=== PATIENT | female | born 2000 | race Caucasian/White ===

== ENCOUNTER 2020-09-30 20:43 | Emergency (ER) | payer MEDICAID ==
[~2020-09-30] VITALS: Ht 157.5 cm; Wt 62.1 kg
[2020-09-30 20:54] VITALS: BP 102/69
--- NOTE | 2020-09-30 21:55 | NUR ---
PT. IS A 20 Y/O FEMALE THAT CAME INTO ED WITH C/O OF RIGHT SIDE ABDOMINAL PAIN. PT. STATES THAT SHE HAD LIPO 5 MONTHS AGO AND SINCE THEN SHE STATES, "I'VE HAD WEAKNESS, NAUSEA, AND VOMIT AND CONSTIPATION." PT. STATES THAT THE ABDOMINAL PAIN STARTED TODAY AND "FEELS LIKE PRESSURE." PT. RATES PAIN 7/10 ON THE PAIN SCALE AT THIS TIME. AAOX4. DENIES FEVER. PMH: DENIES ALLERGIES: NKA
--- NOTE | 2020-09-30 21:55 | NUR ---
AMBULATED TO BED 9 WITH EVEN AND STEADY GAIT
--- NOTE | 2020-09-30 21:55 | NUR ---
USED CRYPTOLOGIC TECHNICIAN OPERATOR/ANALYST DEVICE FOR COMPLETE ASSESSMENT. NAME OF CRYPTOLOGIC TECHNICIAN OPERATOR/ANALYST: SAID #:[id number]
--- NOTE | 2020-09-30 22:00 | NUR ---
Note undone in EDM - 09/30/20 at 2308 by [facility] C/C RUQ PAIN X 3 HOURS. DENIES INJURY. DENIES SOB OR CP. DENIES OTC MEDICATION AT HOME. LAST BM 09/29/20, PT REPORTS STRAINING WITH BOWEL MOVEMENT. +N/V X 2 EPISODES. UNK LMP D/T "IRREGULAR PERIODS." MED HX: DENIES ALLERGIES: NKA
[2020-09-30] MEDS ORDERED: KETOROLAC 30 MG/ML VIAL IVP ONE (22:05)
[2020-09-30] MEDS ORDERED: ONDANSETRON 4 MG/2 ML VIAL IVP ONE (22:05)
--- NOTE | 2020-09-30 22:09 | NUR ---
LAB AT BEDSIDE
[2020-09-30 22:20] LABS: BASOPHILS # (AUTO) 0.1 K/uL (0.00-0.22); BASOPHILS % (AUTO) 0.8 % (0.0-2.0); EOSINOPHILS # (AUTO) 0.5 K/uL (0-0.4); EOSINOPHILS % (AUTO) 5.4 % (0.0-4.0); HEMATOCRIT 39.2 % (36-48); HEMOGLOBIN 12.8 g/dL (12.0-16.0); LYMPHOCYTES # (AUTO) 2.4 K/uL (2.5-16.5); LYMPHOCYTES % (AUTO) 28.3 % (20.5-51.1); MEAN CORPUSCULAR HEMOGLOBIN 27 pg (27-31); MEAN CORPUSCULAR HGB CONC 33 g/dL (33-37); MONOCYTES # (AUTO) 0.6 K/uL (0.8-1.0); NEUTROPHILS % (AUTO) 58.5 % (42.2-75.2); PLATELET COUNT (AUTO) 217 K/uL (140-450); RED BLOOD CELL COUNT(AUTO) 4.72 MIL/uL (4.20-5.40); RED CELL DISTRIBUTION WIDTH 13.3 % (11.6-13.7); WHITE BLOOD COUNT (AUTO) 8.6 K/uL (4.8-10.8)
--- NOTE | 2020-09-30 22:30 | NUR ---
USED SOFTWARE INSTALLATION ENGINEER SERVICES TO EXPLAIN TO PT. MEDICATION SHE IS RECIEVING. NAME: THUAN ID #: [id number]
[2020-09-30 22:40] LABS: ALBUMIN 4.1 g/dL (3.4-5.0); ANION GAP 13.5 (8-16); CARBON DIOXIDE 24.4 mmol/L (21-32); CREATININE 0.8 mg/dL (0.6-1.3); POTASSIUM 3.9 mmol/L (3.5-5.1); TOTAL BILIRUBIN 0.3 mg/dL (0.0-1.0)
--- NOTE | 2020-09-30 23:26 | NUR ---
Dr. Cespedes examining patient.
[2020-09-30] MEDS ORDERED: MIRABULK PO (23:38)
[2020-09-30] MEDS ORDERED: ONDA8TAB87 PO (23:38)
[2020-09-30] MEDS ORDERED: IBUP-2213 PO (23:38)
[2020-09-30 23:51] VITALS: BP 102/69
--- NOTE | 2020-09-30 23:51 | NUR ---
Patient discharged with v/s stable. Written and verbal after care instructions given and explained. Patient alert, oriented and verbalized understanding of instructions. Ambulatory with steady gait. All questions addressed prior to discharge. ID band removed. Patient advised to follow up with PMD. Rx of MIRALAX, ZOFRAN, AND IBUPROFEN given. Patient educated on indication of medication including possible reaction and side effects. Opportunity to ask questions provided and answered.
== END 2020-09-30 23:51 | disposition home or self-care (01) ==
LOC: MED 20:43
DX: K59.00 Constipation, unspecified (principal)
CPT/HCPCS: 36415; 80053; 81002; 81025; 83690; 85025; 96374; 96375; 99284; J1885; J2405